=== PATIENT | female | born 1960 | race Caucasian/White ===

== ENCOUNTER → 2018-05-04 | Outpatient (CLI) | payer OTHER | LOC: M.ULTRA 13:46 | DX: E04.2 Nontoxic multinodular goiter (principal) ==

== ENCOUNTER → 2018-05-23 | Outpatient (CLI) | payer OTHER ==
--- NOTE | 2018-05-30 16:07 | PATH ---
[address] [address] PATHOLOGY RPT PROCEDURE Name: NIKITACHLOE J Room: [facility] MiguelRussell#: [id number] Admission: 05/23/18 Date of : 64 Discharge: Report #: [id number] Path Case #: [id number] Note [facility] Accession Number: [id number] TESTS RESULT FLAG UNITS REF RANGE LAB Clinician Provided Cytology Information No. 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 THIS INTERPRETATION INCLUDES EVALUATION OF A CELL BLOCK. Signed out by: 02 Zachary Wood MD, Pathologist NPI- [id number] Performed by: 01 Rona Méndez, Research Project Coordinator ([facility]) Gross description: 01 13ML, RED, CLOUDY /LCS FLAG LEGEND: L-Low Normal,H-High Normal,LL-Alert Low,HH-Alert High <-Panic Low,>-Panic High,A-Abnormal,AA-Critical Abnormal Performed at: [address] [place] [address] Kenn Vann MD, [address] [id number] Zachary Wood MD, Specimen Comment: A courtesy copy of this report has been sent to Specimen Comment: [phone]. Specimen Comment: Report sent to Performed at: [address], [place], [place] [id number] MD Kenn Vann MD Phone: [phone]
== END | disposition home or self-care (01) ==
LOC: M.ULTRA 07:38
DX: E04.1 Nontoxic single thyroid nodule (principal)